=== PATIENT | male | born 1950 | race Caucasian/White ===

== ENCOUNTER 2016-12-30 09:37 | Inpatient (IN) | payer OTHER ==
[~2016-12-30] VITALS: Ht 185.4 cm; Wt 82.2 kg
[2016-12-30] MEDS ORDERED: SODIUM CHLORIDE 0.9% 1000ML 1,000 ML IV SCH (10:12)
[2016-12-30 10:29] LABS: BASO % 0.6 %; BASO ABS # 0.03 K/uL (0-0.2); COMPLETE YES; EOS % 2.1 %; HEMATOCRIT 44.3 % (42-52); IG% 0.2 %; LYMPH % 28.4 %; LYMPH ABS # 1.52 K/uL (1.2-3.4); MEAN CELL VOLUME 96.7 fL (80-100); MEAN CORPUSCULAR HEMOGLOBIN 33.8 pg (25-34); MEAN PLATELET VOLUME 9.4 fL (7.4-10.4); MONO % 10.3 %; NEUT % 58.4 %; PLATELET COUNT 237 K/uL (130-400); PROTHROMBIN TIME (PATIENT) 10.3 SECONDS (9.0-12.0); RED BLOOD COUNT 4.58 M/uL (4.7-6.1); WHITE BLOOD COUNT 5.35 K/uL (4.8-10.8)
[2016-12-30 10:35] LABS: BLOOD UREA NITROGEN 19 mg/dl (7-18); CALCIUM 9.4 mg/dl (8.5-10.1); CARBON DIOXIDE 29 mmol/L (21-32); CHLORIDE 107 mmol/L (98-107); GLUCOSE 113 mg/dl (70-99); POTASSIUM 3.8 mmol/L (3.5-5.1); SODIUM 140 mmol/L (136-145)
--- NOTE | 2016-12-30 10:37 | EMERGENCY ROOM VISIT NOTE ---
History Report prepared by Serina: Pam Musa Under the Supervision of: Dr. Sandip Lemos M.D. First contact with patient: 09:56 Chief Complaint: STROKE SYMPTOMS Stated Complaint: RIGHT SIDED NUMBNESS, DIZZY Nursing Triage Summary: Vertigo symptoms 3 days ago, new onset. Last night developed numbness in right side and weakness in right leg. History of Present Illness The patient is a 66 year old male who presents to the Emergency Room with complaints of stroke-like symptoms for the past 3 days. The patient states that 3 days ago he woke up with vertigo. He has never had vertigo before. He was dizzy and nauseated. He felt like the room was spinning. Any time that he tried to eat or drink he would become more nauseated and have vomiting. states that he slept in bed almost the entire day and would not eat or drink. The patient states that the next day he felt a little better but was still dizzy and nauseated. states that he slept most of that day as well. Yesterday afternoon most of his vertigo symptoms had resolved. He was able to go outside and cut the grass. He also ate pizza for dinner yesterday evening. The patient states that in the middle of the night last night he woke up and felt like he has slept on his right arm. His right arm was numb and tingling. He tried to scratch his eye but was unable to scratch it in the right place. He got up to go to the bathroom and noticed numbness in his right foot and he had difficulty walking. He also reports numbness and tingling to the right side of his face. He went back to sleep. The patient states that this morning he had a difficult time brushing his teeth. He also dropped the soap, which is very unusual for him. The patient states that he is still feeling "wobbly," but he denies feeling like the room is spinning. states that he has been "stumbling around" for the past few days. She had to help him walk into the hospital today. She reports that his gait appears abnormal. The patient notes that the day before his symptoms began he was in the [place] and found an old tarp behind a shed. He got numerous bug bites that day but denies any bull's eye rashes. Source of History: patient, spouse/significant other Onset: 3 days ago Position: other (global) Quality: other (stroke-like) Timing: worsening Associated Symptoms: + nausea, + vomiting, + fatigue, + weakness, + numbness (right sided), No rash Note: Pt had dizziness and vertigo Review of Systems See HPI for pertinent positives and negatives. A total of ten systems were reviewed and were otherwise negative. Past Medical & Surgical Medical Problems: (1) CVA (cerebral vascular accident) (2) Hypertension Surgical Problems: (1) H/O colonoscopy with polypectomy Family History Diabetes mellitus FH: cancer FHx: seizures Hypertension Kidney disease Kidney stones Seizures Social History Smoking Status: Former Smoker Smokeless Tobacco Use: No Alcohol Use: occasionally Marital Status: Housing Status: lives with significant other Occupation Status: employed Current/Historical Medications No Active Prescriptions or Reported Meds Allergies Coded Allergies: No Known Allergies (Unverified , 12/30/16) Physical Exam Vital Signs Date Time Temp Pulse Resp B/P (MAP) Pulse Ox O2 Delivery O2 Flow Rate FiO2 12/30/16 13:03 61 14 184/105 99 Room Air 12/30/16 11:35 98 Room Air 12/30/16 10:57 98 Room Air 12/30/16 10:22 63 16 176/96 95 12/30/16 09:57 64 12/30/16 09:39 36.6 72 18 221/106 99 Room Air Physical Exam GENERAL: Awake, alert, well-appearing, in no distress HENT: Normocephalic, atraumatic. Oropharynx unremarkable. Dry mucous membranes. EYES: Normal conjunctiva. Sclera non-icteric. NECK: Supple. No nuchal rigidity. FROM. No JVD. RESPIRATORY: Clear to auscultation. CARDIAC: Regular rate, normal rhythm. Extremities warm and well perfused. Pulses equal. ABDOMEN: Soft, non-distended. No tenderness to palpation. No rebound or guarding. No masses. RECTAL: Deferred. MUSCULOSKELETAL: Chest examination reveals no tenderness. The back is symmetrical on inspection without obvious abnormality. There is no CVA tenderness to palpation. No joint edema. LOWER EXTREMITIES: Calves are equal size bilaterally and non-tender. No edema. No discoloration. NEURO: Normal sensorium. Impaired cerebellar function with finger to nose on the right side, otherwise strength in all extremities normal. Sensation is objectively normal but patient reports some subjective numbness. With ambulation patient sways to the right. Negative Romberg although patient reports unsteadiness. SKIN: No rash or jaundice noted. Medical Decision & Procedures ER Provider Diagnostic Interpretation: Radiology results as stated below per my review and radiologist interpretation: CT SCAN OF THE BRAIN WITHOUT IV CONTRAST CLINICAL HISTORY: Stroke. Right-sided numbness. COMPARISON STUDY: No priors. TECHNIQUE: Unenhanced axial CT scan of the brain is performed from the vertex to the skull base. CT DOSE: 638.56 mGycm FINDINGS: Brain parenchyma: There is right cerebellar encephalomalacia consistent with a remote infarct. There are age-related involutional changes noting moderate subcortical and periventricular microangiopathic change. There is no hemorrhage, mass effect, or evidence of acute territorial ischemia by CT criteria. Arriaga-white matter is preserved. No extra-axial fluid collection is seen. Ventricles, sulci, cisterns: Prominent secondary to involutional change. Intracranial vasculature: There is atherosclerotic calcification of the cavernous carotid arteries. There is a 9 mm ovoid hyperdense structure identified along the right sylvian fissure. This is located along the course of the middle cerebral artery, as seen on axial image #7. Calvarium: Unremarkable. Sinuses and mastoids: The visualized paranasal sinuses are clear. The mastoid air cells are well pneumatized. Orbits: The bony orbits are grossly intact. IMPRESSION: 1. There is no hemorrhage, mass effect, or evidence of acute territorial ischemia by CT criteria. 2. Right cerebellar encephalomalacia is typical in appearance for a remote infarct. Correlation with the patient's medical history will be required. 3. There is an indeterminant ovoid 9 mm hyperdense structure along the course of the right middle cerebral artery. This is concerning for aneurysm. Follow-up with a CT angiogram of the brain is recommended for further assessment. Electronically signed by: Everton Waite M.D. 12/30/2016 10:47 AM Dictated Date/Time: 12/30/2016 10:35 AM NECK ANGIO WITH CONTRAST HISTORY: Mental status change stroke TECHNIQUE: Multiaxial CT images of the neck were performed following the intravenous administration of contrast to evaluate the major cervical vessels. Maximum intensity projection images were also obtained. All measurements were calculated based on NASCET criteria. A dose lowering technique was utilized adhering to the principles of ALARA. COMPARISON STUDY: None. FINDINGS: The aortic arch and proximal great vessels are widely patent. There is no significant stenosis, occlusion, or dissection identified within the bilateral common carotid, internal carotid, or vertebral arteries. Mild plaque formation bilaterally IMPRESSION: No significant stenosis, occlusion, or dissection identified within the carotid or vertebral arteries. Mild plaque formation The above report was generated using voice recognition software. It may contain grammatical, syntax or spelling errors. Electronically signed by: Farooq Mckenzie M.D. 12/30/2016 12:10 PM Dictated Date/Time: 12/30/2016 12:[address] ANGIOGRAM OF THE BRAIN CLINICAL HISTORY: Strokelike symptoms. Right-sided weakness. COMPARISON STUDY: Unenhanced CT of the brain performed the same day 12/30/2016. TECHNIQUE: Following the IV administration of 94 cc of Optiray 320, CT angiogram of the brain was performed from the skull base to the vertex. Images are reviewed in the axial, sagittal, and coronal planes. 3-D MIPS images are created and assessed. IV contrast was administered without complication. A dose lowering technique was utilized adhering to the principles of ALARA. FINDINGS: Brain parenchyma: There is moderate patchy subcortical and periventricular microangiopathic disease. Again seen is low attenuation throughout the right cerebellar hemisphere with possible mild edema. There is no evidence of supratentorial ischemia by CT criteria. There is no hemorrhage or mass effect. There is no evidence of enhancing mass lesion on the angiogram phase images. No extra-axial fluid collection is seen. Arriaga-white matter differentiation is preserved. Ventricles, sulci, and cisterns: Normal in configuration. CT angiogram of the brain: The internal carotid arteries are widely patent, as are the anterior and middle cerebral arteries. The vertebrobasilar system and posterior cerebral arteries are widely patent. The left vertebral artery is dominant. There is no aneurysm, high-grade stenosis, or focal vessel cutoff identified throughout the intracranial circulation. Dural sinuses: Clear as visualized. Orbits: The bony orbits are intact. The orbital contents are normal as visualized. Sinuses and mastoids: The visualized paranasal sinuses are clear. The mastoid air cells are well pneumatized. Calvarium: Unremarkable. IMPRESSION: 1. Unremarkable CT angiogram of the brain. The aneurysm questioned on the unenhanced examination corresponds to tortuosity of the right middle cerebral artery. 2. There is low-attenuation seen throughout the right cerebellar hemisphere with the suggestion of mild edema. This is likely related to subacute to chronic ischemia. A mass lesion is considered much less likely. Correlation with a contrast-enhanced MRI is recommended for further assessment. 3. No acute supratentorial abnormality is identified. Electronically signed by: Everton Waite M.D. 12/30/2016 12:14 PM Dictated Date/Time: 12/30/2016 12:02 PM BRAIN COMBO CLINICAL HISTORY: stroke - stroke radha tracee and r/o mass COMPARISON STUDY: No previous studies for comparison. TECHNIQUE: Utilizing a 1.5 Gabriella magnet and dedicated coil, multiplanar, multiecho imaging of the brain was performed pre and postcontrast administration. IV administration of 8.2 mL of Gadavist contrast was uneventful. FINDINGS: Geographic subacute infarct right inferior cerebellum. This measures approximately 5 x 3 cm in maximum geographic area. Considerable chronic small vessel change throughout the cerebral hemispheres. Moderate generalized atrophy. Ventricular system is midline. Postcontrast images are considered negative for an enhancing lesion. IMPRESSION: 1. Large subacute geographic infarct right inferior cerebellum. 2. Considerable chronic small vessel change throughout both cerebral hemispheres. 3. No abnormal postcontrast enhancement. The above report was generated using voice recognition software. It may contain grammatical, syntax or spelling errors. Electronically signed by: Farooq Mckenzie M.D. 12/30/2016 1:09 PM Dictated Date/Time: 12/30/2016 12:56 PM Laboratory Results 12/30/16 09:50 Red Blood Count 4.58, Mean Corpuscular Volume 96.7, Mean Corpuscular Hemoglobin 33.8, Mean Corpuscular Hemoglobin Concent 35.0, Mean Platelet Volume 9.4, Neutrophils (%) (Auto) 58.4, Lymphocytes (%) (Auto) 28.4, Monocytes (%) (Auto) 10.3, Eosinophils (%) (Auto) 2.1, Basophils (%) (Auto) 0.6, Neutrophils # (Auto ) 3.13, Lymphocytes # (Auto) 1.52, Monocytes # (Auto) 0.55, Eosinophils # (Auto ) 0.11, Basophils # (Auto) 0.03 12/30/16 09:50 Test 12/30/16 09:50 12/30/16 10:35 White Blood Count 5.35 K/uL (4.8-10.8) Red Blood Count 4.58 M/uL (4.7-6.1) Hemoglobin 15.5 g/dL (14.0-18.0) Hematocrit 44.3 % (42-52) Mean Corpuscular Volume 96.7 fL (80-100) Mean Corpuscular Hemoglobin 33.8 pg (25-34) Mean Corpuscular Hemoglobin Concent 35.0 g/dl (32-36) Platelet Count 237 K/uL (130-400) Mean Platelet Volume 9.4 fL (7.4-10.4) Neutrophils (%) (Auto) 58.4 % Lymphocytes (%) (Auto) 28.4 % Monocytes (%) (Auto) 10.3 % Eosinophils (%) (Auto) 2.1 % Basophils (%) (Auto) 0.6 % Neutrophils # (Auto) 3.13 K/uL (1.4-6.5) Lymphocytes # (Auto) 1.52 K/uL (1.2-3.4) Monocytes # (Auto) 0.55 K/uL (0.11-0.59) Eosinophils # (Auto) 0.11 K/uL (0-0.5) Basophils # (Auto) 0.03 K/uL (0-0.2) RDW Standard Deviation 43.7 fL (36.4-46.3) RDW Coefficient of Variation 12.6 % (11.5-14.5) Immature Granulocyte % (Auto) 0.2 % Immature Granulocyte # (Auto) 0.01 K/uL (0.00-0.02) Prothrombin Time 10.3 SECONDS (9.0-12.0) Prothromb Time International Ratio 1.0 (0.9-1.1) Activated Partial Thromboplast Time 26.4 SECONDS (21.0-31.0) Partial Thromboplastin Ratio 1.0 Anion Gap 4.0 mmol/L (3-11) Est Creatinine Clear Calc Drug Dose 75.6 ml/min Estimated GFR () 81.2 Estimated GFR (Non- 70.1 BUN/Creatinine Ratio 17.0 (10-20) Calcium Level 9.4 mg/dl (8.5-10.1) Total Creatine Kinase 124 U/L (39-308) Creatine Kinase MB 0.9 ng/ml (0.5-3.6) Creatine Kinase MB Ratio 0.7 (0-3.0) Troponin I < 0.015 ng/ml (0-0.045) Lyme Disease IgG Antibody NEG (NEG) Lyme Disease IgM Antibody NEG (NEG) Urine Color DK YELLOW Urine Appearance CLOUDY (CLEAR) Urine pH 5.0 (4.5-7.5) Urine Specific [place] 1.025 (1.000-1.030) Urine Protein NEG (NEG) Urine Glucose (UA) NEG (NEG) Urine Ketones TRACE (NEG) Urine Occult Blood NEG (NEG) Urine Nitrite NEG (NEG) Urine Bilirubin NEG (NEG) Urine Urobilinogen NEG (NEG) Urine Leukocyte Esterase NEG (NEG) Urine WBC (Auto) 1-5 /hpf (0-5) Urine RBC (Auto) 0-4 /hpf (0-4) Urine Hyaline Casts (Auto) 1-5 /lpf (0-5) Urine Epithelial Cells (Auto) 5-10 /lpf (0-5) Urine Bacteria (Auto) NEG (NEG) Laboratory results reviewed by me. Medications Administered Medications (Trade) Dose Ordered Sig/Sonal Route Start Time Stop Time Status Last Admin Dose Admin Sodium Chloride 1,000 ml @ 50 mls/hr Q20H IV 12/30/16 10:12 12/30/16 16:38 DC 12/30/16 10:43 50 MLS/HR ECG Indication: other (stroke symptoms) Rate (beats per minute): 55 Rhythm: sinus bradycardia Findings: no acute ischemic change, other (normal axis) ED Course 0956: The patient was evaluated in room A10. A complete history and physical exam was performed. 1012: NSS 1000 ml @ 50 mls/hr IV 1102: I reassessed the patient at this time. He is feeling better and resting comfortably. I discussed the results and treatment plan with the patient and his . I answered all pertaining questions that they had. They expressed understanding and verbalized agreement. 1114: I spoke with MARK Perla. We discussed the patient's case. She recommended ordering CTA. The patient will be evaluated by the [facility] for further management. 1124: I spoke with Ruba Wisdom again. She has discussed the case with neurology and they are concerned with the size of the area and requesting and MRI as well. 1337: I spoke with Dr. Mckenzie of radiology regarding the patient's MRI results. He states that there was no edema on MRI despite the questionable edema on CTA. He thinks this has been 2-3 days in chronicity. 1341: At this time I spoke with Ruba Wisdom and updated her on the patient's results. 1345: I updated the patient and his and answered all of their questions. Medical Decision I reviewed the patient's past medical history, medications, and the nursing notes as described above. Differential diagnoses includes stroke, TIA, possible infection, Lyme, Laurent's palsy, complex migraine. Patient is a 66-year-old gentleman, previously healthy , who presents to the emergency department with 3 days of vertigo and impaired gait leaning to the right that has continually improved but also reporting now mild numbness in right arm and leg per history of present illness. On arrival the patient is afebrile hypertensive to 180s. On exam the patient has gross impairment of finger-nose with passed pointing. When he ambulated well into the right. Otherwise sensation and strength in all extremities intact. Considering 3 days of symptoms patient is not a TPA candidate and thus no stroke activation was initiated. However CT and stroke eval was expedited and CT noncontrast showed a large right cerebellar remote infarct. Question of right MCA aneurysm further clarified on CTA found to be artifact of tortuous MCA. Question of edema further clarified on MRI which showed no edema and was further confirmed when discussed with radiologist. Labs unremarkable. Neurology aware of patient after I discussed the case with the hospitalist. Neuro concerned for possible edema which would which would merit transfer to higher level of care. However after reassuring findings on MRI agreeable for admission to medicine service. Recommends holding aspirin at this time as patient is still at risk for hemorrhagic conversion. Discussed with hospitalist, Alyx, who accepted patient for admission. Medication Reconcilliation Current Medication List: was personally reviewed by me Blood Pressure Screening Patient's blood pressure: Elevated blood pressure Blood pressure disposition: Elevated BP felt to be situational Consults Time Called: 1112 Consulting Physician: MARK Perla Returned Call: 1114 I spoke with MARK Perla. We discussed the patient's case. She recommended ordering CTA. The patient will be evaluated by the [facility] for further management. Additional Consults: Time Called: 1124 Consulted Physician: MARK Perla Returned Call: [phone] Additional Comments: I spoke with Ruba Wisdom again. She has discussed the case with neurology and they are concerned with the size of the area and requesting and MRI as well. Time Called: [phone] Consulted Physician: Dr. Mckenzie Returned Call: [phone] Additional Comments: I spoke with Dr. Mckenzie of radiology regarding the patient's MRI results. He states that there was no edema on MRI despite the questionable edema on CTA. He thinks this has been 2-3 days in chronicity. Impression Primary Impression: Cerebellar stroke Scribe Attestation The scribe's documentation has been prepared under my direction and personally reviewed by me in its entirety. I confirm that the note above accurately reflects all work, treatment, procedures, and medical decision making performed by me. Departure Information Dispostion Being Evaluated By Hospitalist Prescriptions No Active Prescriptions or Reported Meds Referrals David Ridley III, M.D. (PCP) Patient Instructions My [facility] Stroke History Time Last Known Well Greater than 72 hours Stroke t-PA Criteria Reviewed Does NOT meet criteria for t-PA Reason t-PA Not Given Treatment not indicated Strict Exclusion Criteria CT findings of ICH or SAH
[2016-12-30 10:40] LABS: CKMB/CK RATIO 0.7 (0-3.0)
--- NOTE | 2016-12-30 10:48 | DIAGNOSTIC IMAGING REPORT ---
CT SCAN OF THE BRAIN WITHOUT IV CONTRAST CLINICAL HISTORY: Stroke. Right-sided numbness. COMPARISON STUDY: No priors. TECHNIQUE: Unenhanced axial CT scan of the brain is performed from the vertex to the skull base. CT DOSE: 638.56 mGycm FINDINGS: Brain parenchyma: There is right cerebellar encephalomalacia consistent with a remote infarct. There are age-related involutional changes noting moderate subcortical and periventricular microangiopathic change. There is no hemorrhage, mass effect, or evidence of acute territorial ischemia by CT criteria. Arriaga-white matter is preserved. No extra-axial fluid collection is seen. Ventricles, sulci, cisterns: Prominent secondary to involutional change. Intracranial vasculature: There is atherosclerotic calcification of the cavernous carotid arteries. There is a 9 mm ovoid hyperdense structure identified along the right sylvian fissure. This is located along the course of the middle cerebral artery, as seen on axial image #7. Calvarium: Unremarkable. Sinuses and mastoids: The visualized paranasal sinuses are clear. The mastoid air cells are well pneumatized. Orbits: The bony orbits are grossly intact. IMPRESSION: 1. There is no hemorrhage, mass effect, or evidence of acute territorial ischemia by CT criteria. 2. Right cerebellar encephalomalacia is typical in appearance for a remote infarct. Correlation with the patient's medical history will be required. 3. There is an indeterminant ovoid 9 mm hyperdense structure along the course of the right middle cerebral artery. This is concerning for aneurysm. Follow-up with a CT angiogram of the brain is recommended for further assessment. Electronically signed by: Everton Waite M.D. 12/30/2016 10:47 AM Dictated Date/Time: 12/30/2016 10:35 AM
[2016-12-30 10:56] LABS: LYME DISEASE AB IGG NEG (NEG); LYME DISEASE AB IGM NEG (NEG)
[2016-12-30 11:09] LABS: URINE APPEARANCE CLOUDY (CLEAR); URINE BILIRUBIN NEG (NEG); URINE COLOR DK YELLOW; URINE NITRITE NEG (NEG); URINE SPECIFIC GRAVITY 1.025 (1.000-1.030); UROBILINOGEN NEG (NEG); ZZUR CULT IF INDIC CLEAN CATCH NO
[2016-12-30 11:14] LABS: MANUAL MICROSCOPIC REQUIRED? NO; REVIEW REQ? NO
[2016-12-30] MEDS ORDERED: OPTIRAY 320 IV PRN (11:30)
[2016-12-30 11:35] VITALS: O2SAT 98; Ht 185.4 cm; Wt 82.2 kg
--- NOTE | 2016-12-30 12:11 | DIAGNOSTIC IMAGING REPORT ---
NECK ANGIO WITH CONTRAST HISTORY: Mental status change stroke TECHNIQUE: Multiaxial CT images of the neck were performed following the intravenous administration of contrast to evaluate the major cervical vessels. Maximum intensity projection images were also obtained. All measurements were calculated based on NASCET criteria. A dose lowering technique was utilized adhering to the principles of ALARA. COMPARISON STUDY: None. FINDINGS: The aortic arch and proximal great vessels are widely patent. There is no significant stenosis, occlusion, or dissection identified within the bilateral common carotid, internal carotid, or vertebral arteries. Mild plaque formation bilaterally IMPRESSION: No significant stenosis, occlusion, or dissection identified within the carotid or vertebral arteries. Mild plaque formation The above report was generated using voice recognition software. It may contain grammatical, syntax or spelling errors. Electronically signed by: Farooq Mckenzie M.D. 12/30/2016 12:10 PM Dictated Date/Time: 12/30/2016 12:07 PM
--- NOTE | 2016-12-30 12:15 | DIAGNOSTIC IMAGING REPORT ---
CT ANGIOGRAM OF THE BRAIN CLINICAL HISTORY: Strokelike symptoms. Right-sided weakness. COMPARISON STUDY: Unenhanced CT of the brain performed the same day 12/30/2016. TECHNIQUE: Following the IV administration of 94 cc of Optiray 320, CT angiogram of the brain was performed from the skull base to the vertex. Images are reviewed in the axial, sagittal, and coronal planes. 3-D MIPS images are created and assessed. IV contrast was administered without complication. A dose lowering technique was utilized adhering to the principles of ALARA. FINDINGS: Brain parenchyma: There is moderate patchy subcortical and periventricular microangiopathic disease. Again seen is low attenuation throughout the right cerebellar hemisphere with possible mild edema. There is no evidence of supratentorial ischemia by CT criteria. There is no hemorrhage or mass effect. There is no evidence of enhancing mass lesion on the angiogram phase images. No extra-axial fluid collection is seen. Arriaga-white matter differentiation is preserved. Ventricles, sulci, and cisterns: Normal in configuration. CT angiogram of the brain: The internal carotid arteries are widely patent, as are the anterior and middle cerebral arteries. The vertebrobasilar system and posterior cerebral arteries are widely patent. The left vertebral artery is dominant. There is no aneurysm, high-grade stenosis, or focal vessel cutoff identified throughout the intracranial circulation. Dural sinuses: Clear as visualized. Orbits: The bony orbits are intact. The orbital contents are normal as visualized. Sinuses and mastoids: The visualized paranasal sinuses are clear. The mastoid air cells are well pneumatized. Calvarium: Unremarkable. IMPRESSION: 1. Unremarkable CT angiogram of the brain. The aneurysm questioned on the unenhanced examination corresponds to tortuosity of the right middle cerebral artery. 2. There is low-attenuation seen throughout the right cerebellar hemisphere with the suggestion of mild edema. This is likely related to subacute to chronic ischemia. A mass lesion is considered much less likely. Correlation with a contrast-enhanced MRI is recommended for further assessment. 3. No acute supratentorial abnormality is identified. Electronically signed by: Everton Waite M.D. 12/30/2016 12:14 PM Dictated Date/Time: 12/30/2016 12:02 PM
--- NOTE | 2016-12-30 13:10 | DIAGNOSTIC IMAGING REPORT ---
BRAIN COMBO CLINICAL HISTORY: stroke - stroke radha tracee and r/o mass COMPARISON STUDY: No previous studies for comparison. TECHNIQUE: Utilizing a 1.5 Gabriella magnet and dedicated coil, multiplanar, multiecho imaging of the brain was performed pre and postcontrast administration. IV administration of 8.2 mL of Gadavist contrast was uneventful. FINDINGS: Geographic subacute infarct right inferior cerebellum. This measures approximately 5 x 3 cm in maximum geographic area. Considerable chronic small vessel change throughout the cerebral hemispheres. Moderate generalized atrophy. Ventricular system is midline. Postcontrast images are considered negative for an enhancing lesion. IMPRESSION: 1. Large subacute geographic infarct right inferior cerebellum. 2. Considerable chronic small vessel change throughout both cerebral hemispheres. 3. No abnormal postcontrast enhancement. The above report was generated using voice recognition software. It may contain grammatical, syntax or spelling errors. Electronically signed by: Farooq Mckenzie M.D. 12/30/2016 1:09 PM Dictated Date/Time: 12/30/2016 12:56 PM
[2016-12-30] MEDS ORDERED: PNEUMOCOCCAL ADMINISTRATION CHARGE ONE (13:45)
[2016-12-30] MEDS ORDERED: PNEUMOCOCCAL POLYSACCHARIDES 25 MCG/0.5 ML VIAL/SYR IM. ONE (13:45)
[2016-12-30] MEDS ORDERED: PHARMACIST DISCHARGE MED REC CONSULT PRN (14:45)
[2016-12-30] MEDS ORDERED: ACETAMINOPHEN 325 MG TAB PO PRN (15:00)
[2016-12-30] MEDS ORDERED: ONDANSETRON INJ 2 MG/ML 2 ML VIAL IV PRN (15:00)
--- NOTE | 2016-12-30 15:27 | Progress Note ---
Progress Note Date of Service Dec 30, 2016. Progress Note Patient was seen and evaluated with ALVA Bright. Patient comes in with c/o dizziness, off balance, nausea, followed by numbness and weakness in right face, upper/lower extremities. Had vomiting 2 days ago. No headaches. EXAM: Gen- AAOX3, no distress HEENT- PERRLA Neck- No JVD Lungs- AEBE, no wheezing, rales Heart- S1, S2 normal, no murmurs Neuro- AAOX3, Cranial nerves intact, Power 5/5 all extremities, Coordination- Finger to nose test- right side abnormal, Ceballos-Heel test- normal, Sensory all ext - normal Ext- no edema Labs reviewed Imaging reviewed MRI BRAIN IMPRESSION: 1. Large subacute geographic infarct right inferior cerebellum. 2. Considerable chronic small vessel change throughout both cerebral hemispheres. 3. No abnormal postcontrast enhancement. CTA HEAD IMPRESSION: 1. Unremarkable CT angiogram of the brain. The aneurysm questioned on the unenhanced examination corresponds to tortuosity of the right middle cerebral artery. 2. There is low-attenuation seen throughout the right cerebellar hemisphere with the suggestion of mild edema. This is likely related to subacute to chronic ischemia. A mass lesion is considered much less likely. Correlation with a contrast-enhanced MRI is recommended for further assessment. 3. No acute supratentorial abnormality is identified. CTA NECK IMPRESSION: No significant stenosis, occlusion, or dissection identified within the carotid or vertebral arteries. Mild plaque formation ASSESSMENT AND PLAN: ACUTE STROKE- LARGE RIGHT INFERIOR CEREBELLUM: Presented with symptoms of dizziness, off balance, right sided numbness, weakness -CT head/MRI brain- Large subacute geographic infarct right inferior cerebellum -Continues to have some dizziness, coordination deficits -Not a candidate for TPA as outside the window -Risk factors- Elevated BP in past 2 months which was being evaluated but not treated -No ASA given the large infarct and risk of hemorrhagic conversion per Neurology -Statin - Atorvastatin 80 mg -Work up- CTA head/neck- as above, no aneurysm (was noted on CT scan head), Lipid panel in AM, HBA1C for risk stratification -Neurology consulted - ER physician discussed case with Dr Marin. HYPERTENSION Diagnosed 2 months ago, but not treated as patient was hesitant of starting PO medications and wanted to achieve control with life style modifications -BP in 180s -Permissive HTN -Hydralazine IV PRN for SBP < 180 OR DBP > 110 -Monitor closely DVT PROPHYLAXIS SCDS/TEDS No anticoagulation due to risk of hemorrhagic conversion DISPOSITION -Admit to telemetry
--- NOTE | 2016-12-30 15:28 | History and Physical ---
History & Physical Date & Time of Service: Dec 30, 2016 at 14:53 Chief Complaint: Right Sided Numbness, Dizzy Primary Care Physician: David Ridley III, M.D. History of Present Illness Source: patient, spouse, clinic records This is a 66 y/o male with recently noted HTN who presents to the ED with stroke like symptoms. Patient states 3 days ago he developed vertigo "like I was spinning" and vomiting, then slept for the rest of the day. The next day he felt better although was "wobbly", then yesterday mowed the lawn and ate normally. He went to bed at 10 pm then awoke at 3 am noting his right hand coordination was off, right facial numbness and right foot numbness. Also had a mild DAVIS overnight. He was brought to the ER by his and had difficulty ambulating into the ER. Currently still having right facial numbness and R hand coordination difficulty. Denies vision change, speech or swallowing difficulty, facial droop, focal weakness, syncope, palpitations, chest pain, SOB, BASURTO, bowel or bladder changes, fever, URI symptoms, tinnitus. Pt reports rash on arms after "either bug bites or poison tiffany" while outside last week which is improving. Patient states his BP was elevated at the dentist recently. Pt reports seeing Dr. Ridley last month, BP was elevated in the office, pt preferred not to go on medication at that time. Home BP readings are 130s-140s systolic at home however increase to 150's if he is upset. Patient denies any history of TIA, CVA, HL, DM. Past Medical/Surgical History Medical Problems: (1) Hypertension Status: Chronic Surgical Problems: (1) H/O colonoscopy with polypectomy Status: Chronic Family History Diabetes mellitus FH: cancer FHx: seizures Hypertension Kidney disease Kidney stones Seizures TIAs MOTHER (in 70's) SISTER (late 50's) Social History Smoking Status: Former Smoker (quit 25y ago, smoked 1/2 ppd x 18 y) Smokeless Tobacco Use: No Alcohol Use: 3-4 glasses of wine per day Drug Use: none Marital Status: Housing status: lives with significant other Occupational Status: employed Multi-Drug Resistant Organisms History of MDRO: No Allergies Coded Allergies: No Known Allergies (Unverified , 12/30/16) Home Medications No Active Prescriptions or Reported Meds Review of Systems Ten systems reviewed and negative except as noted in HPI. Physical Exam Vital Signs Date Time Temp Pulse Resp B/P (MAP) Pulse Ox O2 Delivery O2 Flow Rate FiO2 12/30/16 13:03 61 14 184/105 99 Room Air 12/30/16 11:35 98 Room Air 12/30/16 10:57 98 Room Air 12/30/16 10:22 63 16 176/96 95 12/30/16 09:57 64 12/30/16 09:39 36.6 72 18 221/106 99 Room Air General Appearance: WD/WN, no apparent distress, + pertinent finding ( at bedside) Head: normocephalic, atraumatic Eyes: normal inspection, PERRL, EOMI, sclerae normal ENT: hearing grossly normal, pharynx normal Neck: supple, no carotid bruits, trachea midline Respiratory/Chest: lungs clear, normal breath sounds, no respiratory distress, no accessory muscle use Cardiovascular: regular rate, rhythm, no murmur Abdomen/GI: normal bowel sounds, non tender, soft Extremities/Musculoskelatal: no calf tenderness, no pedal edema Neurologic/Psych: fly raiser lockstitch II-XII nml as tested, no motor/sensory deficits, alert, normal mood/affect, oriented x 3, + pertinent finding (finger to nose testing abnormal on the right side. gait not assessed.) Skin: normal color, warm/dry Diagnostics Laboratory Results Results Past 24 Hours Test 12/30/16 09:50 12/30/16 10:35 12/30/16 14:44 Range/Units White Blood Count 5.35 4.8-10.8 K/uL Red Blood Count 4.58 4.7-6.1 M/uL Hemoglobin 15.5 14.0-18.0 g/dL Hematocrit 44.3 42-52 % Mean Corpuscular Volume 96.7 80-100 fL Mean Corpuscular Hemoglobin 33.8 25-34 pg Mean Corpuscular Hemoglobin Concent 35.0 32-36 g/dl Platelet Count 237 130-400 K/uL Mean Platelet Volume 9.4 7.4-10.4 fL Neutrophils (%) (Auto) 58.4 % Lymphocytes (%) (Auto) 28.4 % Monocytes (%) (Auto) 10.3 % Eosinophils (%) (Auto) 2.1 % Basophils (%) (Auto) 0.6 % Neutrophils # (Auto) 3.13 1.4-6.5 K/uL Lymphocytes # (Auto) 1.52 1.2-3.4 K/uL Monocytes # (Auto) 0.55 0.11-0.59 K/uL Eosinophils # (Auto) 0.11 0-0.5 K/uL Basophils # (Auto) 0.03 0-0.2 K/uL RDW Standard Deviation 43.7 36.4-46.3 fL RDW Coefficient of Variation 12.6 11.5-14.5 % Immature Granulocyte % (Auto) 0.2 % Immature Granulocyte # (Auto) 0.01 0.00-0.02 K/uL Prothrombin Time 10.3 9.0-12.0 SECONDS Prothromb Time International Ratio 1.0 0.9-1.1 Activated Partial Thromboplast Time 26.4 21.0-31.0 SECONDS Partial Thromboplastin Ratio 1.0 Sodium Level 140 136-145 mmol/L Potassium Level 3.8 3.5-5.1 mmol/L Chloride Level 107 98-107 mmol/L Carbon Dioxide Level 29 21-32 mmol/L Anion Gap 4.0 3-11 mmol/L Blood Urea Nitrogen 19 7-18 mg/dl Creatinine 1.10 0.60-1.40 mg/dl Est Creatinine Clear Calc Drug Dose 75.6 ml/min Estimated GFR () 81.2 Estimated GFR (Non- 70.1 BUN/Creatinine Ratio 17.0 10-20 Random Glucose 113 70-99 mg/dl Calcium Level 9.4 8.5-10.1 mg/dl Total Creatine Kinase 124 39-308 U/L Creatine Kinase MB 0.9 0.5-3.6 ng/ml Creatine Kinase MB Ratio 0.7 0-3.0 Troponin I < 0.015 0-0.045 ng/ml Lyme Disease IgG Antibody NEG NEG Lyme Disease IgM Antibody NEG NEG Urine Color DK YELLOW Urine Appearance CLOUDY CLEAR Urine pH 5.0 4.5-7.5 Urine Specific [place] 1.025 1.000-1.030 Urine Protein NEG NEG Urine Glucose (UA) NEG NEG Urine Ketones TRACE NEG Urine Occult Blood NEG NEG Urine Nitrite NEG NEG Urine Bilirubin NEG NEG Urine Urobilinogen NEG NEG Urine Leukocyte Esterase NEG NEG Urine WBC (Auto) 1-5 0-5 /hpf Urine RBC (Auto) 0-4 0-4 /hpf Urine Hyaline Casts (Auto) 1-5 0-5 /lpf Urine Epithelial Cells (Auto) 5-10 0-5 /lpf Urine Bacteria (Auto) NEG NEG Diagnostic Radiology CT SCAN OF THE BRAIN WITHOUT IV CONTRAST IMPRESSION: 1. There is no hemorrhage, mass effect, or evidence of acute territorial ischemia by CT criteria. 2. Right cerebellar encephalomalacia is typical in appearance for a remote infarct. Correlation with the patient's medical history will be required. 3. There is an indeterminant ovoid 9 mm hyperdense structure along the course of the right middle cerebral artery. This is concerning for aneurysm. Follow-up with a CT angiogram of the brain is recommended for further assessment. NECK ANGIO WITH CONTRAST IMPRESSION: No significant stenosis, occlusion, or dissection identified within the carotid or vertebral arteries. Mild plaque formation CT ANGIOGRAM OF THE BRAIN IMPRESSION: 1. Unremarkable CT angiogram of the brain. The aneurysm questioned on the unenhanced examination corresponds to tortuosity of the right middle cerebral artery. 2. There is low-attenuation seen throughout the right cerebellar hemisphere with the suggestion of mild edema. This is likely related to subacute to chronic ischemia. A mass lesion is considered much less likely. Correlation with a contrast-enhanced MRI is recommended for further assessment. 3. No acute supratentorial abnormality is identified. BRAIN COMBO IMPRESSION: 1. Large subacute geographic infarct right inferior cerebellum. 2. Considerable chronic small vessel change throughout both cerebral hemispheres. 3. No abnormal postcontrast enhancement. EKG sinus bradycardia, 55 bpm, no ectopy, no ischemic findings Impression Assessment and Plan LARGE RIGHT CEREBELLAR INFARCT Presented with vertigo, right hand coordination difficulty, right facial and right leg numbness, and difficulty ambulating CT head- no hemorrhage, mass effect or evidence acute ischemia, + R cerebellar encephalomalacia typical for remote infarct- correlate with history; indeterminant ovoid 9 mm hyperdense structure along the course of R MCA concerning for aneurysm, f/u CTA brain recommended CTA neck- no signficiant stenosis, occlusion, or dissection within carotid or vertebral arteries, +mild plaque formation CTA brain- the aneurysm questioned on CT corresponds to tortuosity of the right MCA; There is low-attenuation seen throughout the right cerebellar hemisphere with the suggestion of mild edema, likely subacute to chronic ischemia, mass lesion much less likely, correlate with MRI MRI brain combo- large subacute geographic infarct right inferior cerebellum, considerable chronic small vessel change throughout both cerebral hemispheres, no abnormal postcontrast enhancement Risk factor- hypertension Check echo w/ bubble study, telemetry monitoring Check lipid panel, A1c Start atorvastatin 80 mg Aspirin contraindicated for now due to high risk for hemorrhagic conversion as per neurology Permissive hypertension Consult neurology- Dr. Marin is aware PT, OT, speech consults HYPERTENSION Recently noted as outpatient- patient preferred not to go on medication at that time BP 220 systolic on presentation to ER -> now 180s/100s Permissive HTN for CVA PRN hydralazine for SBP >180 or DBP >110 DVT PROPHYLAXIS SCD's due to risk of hemorrhagic conversion FULL CODE DISPOSITION Admission telemetry Follows with Dr. Ridley for primary care Patient seen in collaboration w/ Dr. Sole Barcenas. Please see her addendum. Advanced Directives Existing Living Will: Yes Existing Power of Distribution Engineering Technologist: Yes VTE Prophylaxis VTE Risk Assessment Done? Y/N: Yes Risk Level: Moderate
[2016-12-30] MEDS ORDERED: HydrALAZINE HCL 20 MG/ML VIAL IV. PRN (15:30)
[2016-12-30 16:00] VITALS: BP 200/91; PULSE 52; TEMP 37; O2SAT 98
[2016-12-30 20:00] VITALS: BP 154/82; PULSE 60; TEMP 36.9; O2SAT 98
--- NOTE | 2016-12-30 20:34 | CONSULTATION REPORT ---
DATE OF CONSULTATION: 12/30/2016 REFERRING PHYSICIAN: Dr. Sole Barcenas. HISTORY OF PRESENT ILLNESS: Mr. Serrato is 66 years old, is right handed, is a retired real estate agency principal from [place] and has a relatively benign medical history with only recently diagnosed hypertension, started on some medication by Dr. Ridley after observation for a while and has had a colonoscopy and a polypectomy. He awakened from sleep, 3 days ago with vertigo and fairly significant vomiting and slept the rest of the day thinking that he had a viral illness. He got up feeling somewhat better on the second day, was a little wobbly, probably was a little dystaxic to the right, but was able to get on a lawnmower, mowed his lawn, ate normally and went to bed. He awakened at 3 this morning with a sensation of numbness in his right hand, difficulty with coordination, which was probably the primary problem and had some tingling in the right side of his face. He denied any other issues, although his states that he was more wobbly today or perhaps more wobbly and had trouble walking, tending to go to the right and his arm was more clumsy. He was brought to the ER and evaluated. Initial assessment suggests the possibility of a cerebral aneurysm and subsequent CT angiography, etc. has excluded this and there was a question of a cerebellar infarct on the right on CT scan. I discussed the case with Zeina FLORES suggested that we get an MRI to further define the problem and indeed the MRI confirmed the presence of what appears to be a recently originating right cerebellar infarct with some extension into the dorsal right lateral medulla. He has had absolutely no headache, diplopia, abnormal ocular oscillations, visual loss, tinnitus, hearing loss, motor problems other than those described above and no sensory phenomenon other than actually the numbness involving the right side of his face and a sensation of clumsiness and stiffness in his right arm in addition to the leg clumsiness. SOCIAL HISTORY: Reveals him to be a former smoker, quitting 25 years ago. He does consume ethanol. He lives with his significant other, is partially retired from the [employer] business. FAMILY HISTORY: Positive for diabetes, cancer, seizures, hypertension and kidney stones and kidney disease. His mother and sister had TIAs in their 70s and 50s. MEDICATIONS: At home include apparently no active prescriptions. I thought he had been on some lisinopril. ALLERGIES: He has no drug allergies. REVIEW OF SYSTEMS: Reveals no systemic issues recently. No tick bites. No fever, sweats, chills, no weight loss, no weight gain, no problems referable to head, eyes, ears, nose and throat other than those related to history of present illness. No cardiovascular, pulmonary, gastrointestinal, genitourinary, or musculoskeletal problems and no prior neurologic issues. He specifically denies any history of palpitations or irregular heartbeat that he has been aware of. PHYSICAL EXAMINATION: VITAL SIGNS: The blood pressure is 184/105, rising even further to 221/106. Pulse is 61, respiration of 14. GENERAL: He is well developed, well-nourished, oriented. He has normal extraocular movements. He has normal visual acuity. NECK: I do not hear any carotid bruits. LUNGS: Clear. HEART: Has a regular rhythm. I do not hear any murmurs. ABDOMEN: Soft, nontender. EXTREMITIES: Free of edema. He has good peripheral pulses. NEUROLOGIC: Today, he is awake, alert, oriented, has clear speech. There may be a slight degree of reduced thermal sensation in the right side of the face. Otherwise, facial motility and strength is normal. Eye movements are normal. Visual cuevas are full. There is no Alejo's syndrome. Ocular fundi are poorly seen. Speech is clear. Tongue protrudes in the midline. Uvula elevates normally. There may be a very minor degree of clumsiness of the right hand, on [id number] and [id number] testing with some past pointing on the right. Otherwise, exam was free of tremors, tics, choreiform activity or other abnormal involuntary movements. The facility of rapid repetitive motions in the right leg is marginally decreased. He has a little cerebellar dysmetria on heel to flores testing on the right, but not the left. Reflexes are 1+ and symmetrical. Toes are downgoing. No Meagan's signs are seen. Muscle strength testing is normal. Sensation is intact with the exception of a minor reduction of temperature sensation in the right side of the face. IMPRESSION: This man has clearly had a cerebellar infarct, it came on acutely 3 days ago. Some of his new symptoms may reflect a slight Supriya-infarction edema and/or slight compression on the medulla, although imaging studies suggest there is an element of ischemia in the dorsal lateral medulla on the right which might be involving the descending pathways from the trigeminal nerve. Whatever the case, there does not appear to be large mass effect. There is no evidence for early hemorrhage, we do not have any evidence for significant vascular disease, although cta of the vertebral arteries does not show clear delineaton of the PICA distribution on either side, so a localized right pica occlusion could not be excluded. Whatever the case, he needs observation. We are going probably do more imaging studies tomorrow or the next day depending on how he does just to be sure there is no hemorrhagic transformation. I am going to hold off on any empiric anticoagulation at this point. His blood pressure is going to have to be reduced into an acceptable range with some elements of permissive hypertension. He probably will start up on antiplatelet agents in a day or 2 once I am convinced there is no hemorrhagic transformation in this area and there is no further edema. He is going to need an evaluation for cardiogenic source of emboli and I believe if we do not see any evidence for atrial fibrillation while here, he is going to need a Zio patch or Cardionet monitor as this would be one of the more common causes for this type of cryptogenic possibly embolic cerebellar infarction. Dr. Lisette Pinzon now will take a look at him tomorrow. SERGEY
[2016-12-30] MEDS ORDERED: ATORVASTATIN 40 MG TAB PO SCH ×2 (21:00)
[2016-12-30 23:40] VITALS: BP 164/91; PULSE 68; TEMP 37.2; O2SAT 96
[2016-12-31 03:51] VITALS: BP 138/82; PULSE 61; TEMP 36.9; O2SAT 96
[2016-12-31 05:56] LABS: BASO % 0.5 %; BASO ABS # 0.03 K/uL (0-0.2); COMPLETE YES; EOS % 2.7 %; HEMATOCRIT 42.6 % (42-52); IG% 0.4 %; LYMPH % 27.8 %; LYMPH ABS # 1.54 K/uL (1.2-3.4); MEAN CELL VOLUME 95.7 fL (80-100); MEAN CORPUSCULAR HEMOGLOBIN 32.1 pg (25-34); MEAN CORPUSCULAR HGB CONC 33.6 g/dl (32-36); MEAN PLATELET VOLUME 9.4 fL (7.4-10.4); MONO % 10.3 %; NEUT % 58.3 %; PLATELET COUNT 208 K/uL (130-400); RED BLOOD COUNT 4.45 M/uL (4.7-6.1); WHITE BLOOD COUNT 5.54 K/uL (4.8-10.8)
[2016-12-31 06:23] LABS: CALCIUM 8.9 mg/dl (8.5-10.1); CREATININE 0.97 mg/dl (0.60-1.40); POTASSIUM 3.7 mmol/L (3.5-5.1)
[2016-12-31 06:26] LABS: CHOLESTEROL/HDL RATIO 2.7
[2016-12-31 07:26] VITALS: BP 165/81; PULSE 57; TEMP 36.4; O2SAT 98
[2016-12-31 08:57] LABS: ESTIMATED AVERAGE GLUCOSE 114 mg/dl; HA1C FLAG Normal (Normal)
--- NOTE | 2016-12-31 09:42 | ECHOCARDIOGRAM REPORT ---
*NOTICE TO RECEIVING REPUBLICAN AGENCY This information is strictly Confidential and protected under [place] law. [place] law prohibits you from making any further disclosure of this information unless further disclosure is expressly permitted by the written consent of the person to whom it pertains or is authorized by law. A general authorization for the release of medical or other information is not sufficient for this purpose. Hospital accepts no responsibility if the information is made available to any other person, INCLUDING THE PATIENT. Interpretation Summary * Name: TYSON LEVY Study Date: 12/31/2016 06:27 AM BP: 165/81 mmHg * Patient Location: C.2T\S\S233\S\1 HR: 55 * : 1950 (M/d/yyyy) Gender: Male Height: 73 in * Age: 66 yrs Ethnicity: CA Weight: 180 lb * Ordering Physician: Zeina Bright * Referring Physician: Self, Referred * Performed By: Florence Macedo [facility] * * Reason For Study: STROKE * BSA: 2.1 m2 * -- Conclusions -- * Normal LV chamber size with mild concentric LVH, sigmoid appearing septum. * Normal LV systolic function, EF 55-60%. * No segmental left ventricular wall motion abnormalities are noted. * Grade II diastolic dysfunction. * No significant valvular disease. * Intact interatrial septum. Procedure Details * A complete two-dimensional transthoracic echocardiogram was performed (2D, M-mode, Doppler and color flow Doppler). * A saline contrast injection was performed to assess for cardiac shunting. * The injection was performed through an intravenous line in the right arm. * The attending nurse who injected the saline contrast was СВЕТЛАНА MURDOCK, RN. * A total of 20 cc of agitated saline was given. Left Ventricle * The left ventricle is normal in size. * There is mild concentric left ventricular hypertrophy. * The basal septum is thickened and angulated consistent with sigmoid septum. * Ejection Fraction = 55-60%. * Left ventricular systolic function is normal. * No segmental left ventricular wall motion abnormalities are noted. * The left ventricular wall motion is normal. Right Ventricle * The right ventricular cavity size is normal (basal dimension <4.2 cm in right ventricular apical 4-chamber view). * The right ventricular systolic function is normal as assessed by tricuspid annular plane systolic excursion (TAPSE) (normal >1.5 cm). Atria * The left atrial size is normal. * Right atrial size is normal. * The interatrial septum is intact with no evidence for an atrial septal defect. Mitral Valve * The mitral valve is normal in structure and function. Tricuspid Valve * The tricuspid valve is normal in structure and function. Aortic Valve * The aortic valve is normal in structure and function. Pulmonic Valve * The pulmonary valve is not well seen, but the Doppler examination is normal without significant regurgitation or stenosis. Great Vessels * The aortic root is normal size. Pericardium/Pleural * There is no pericardial effusion. Left Ventricular Diastolic Function * Diastolic dysfunction, Grade II (pseudonormalization pattern). MMode 2D Measurements and Calculations IVSd 1.5 cm IVSs 1.6 cm LVIDd 4.5 cm LVIDs 3.4 cm LVPWd 1.3 cm LVPWs 1.6 cm IVS/LVPW 1.2 FS 24.3 % EDV(Teich) 90.6 ml ESV(Teich) 46.7 ml EF(Teich) 48.4 % EDV(cubed) 88.8 ml ESV(cubed) 38.6 ml EF(cubed) 56.6 % % IVS thick 5.3 % % LVPW thick 22.4 % LV mass(C)d 240.3 grams LV mass(C)dI 116.8 grams/m\S\2 LV mass(C)s 197.5 grams LV mass(C)sI 96.0 grams/m\S\2 SV(Teich) 43.9 ml SI(Teich) 21.3 ml/m\S\2 SV(cubed) 50.2 ml SI(cubed) 24.4 ml/m\S\2 Ao root diam 3.5 cm Ao root area 9.6 cm\S\2 ACS 1.9 cm LA dimension 3.1 cm LA/Ao 0.89 LVOT diam 2.0 cm LVOT area 3.1 cm\S\2 LVAd ap4 39.6 cm\S\2 LVLd ap4 9.5 cm EDV(MOD-sp4) 137.5 ml EDV(sp4-el) 140.2 ml LVAs ap4 27.8 cm\S\2 LVLs ap4 8.7 cm ESV(MOD-sp4) 75.0 ml ESV(sp4-el) 75.7 ml EF(MOD-sp4) 45.5 % EF(sp4-el) 46.0 % LVAd ap2 36.0 cm\S\2 LVLd ap2 8.9 cm EDV(MOD-sp2) 120.6 ml EDV(sp2-el) 124.1 ml LVAs ap2 21.5 cm\S\2 LVLs ap2 7.0 cm ESV(MOD-sp2) 56.9 ml ESV(sp2-el) 56.2 ml EF(MOD-sp2) 52.8 % EF(sp2-el) 54.7 % LVLd %diff -6.88 % EDV(MOD-bp) 134.1 ml LVLs %diff -25.05 % ESV(MOD-bp) 71.9 ml EF(MOD-bp) 46.4 % SV(MOD-sp4) 62.5 ml SI(MOD-sp4) 30.4 ml/m\S\2 SV(MOD-sp2) 63.7 ml SI(MOD-sp2) 30.9 ml/m\S\2 SV(MOD-bp) 62.2 ml SI(MOD-bp) 30.2 ml/m\S\2 SV(sp4-el) 64.5 ml SI(sp4-el) 31.4 ml/m\S\2 SV(sp2-el) 67.9 ml SI(sp2-el) 33.0 ml/m\S\2 Doppler Measurements and Calculations MV E max melita 73.7 cm/sec MV A max melita 45.6 cm/sec MV E/A 1.6 MV P1/2t max melita 82.4 cm/sec MV P1/2t 89.7 msec MVA(P1/2t) 2.5 cm\S\2 MV dec slope 269.1 cm/sec\S\2 MV dec time 0.21 sec Ao V2 max 125.3 cm/sec Ao max PG 6.3 mmHg Ao max PG (full) 1.8 mmHg MILLIE(V,A) 2.6 cm\S\2 MILLIE(V,D) 2.6 cm\S\2 LV V1 max PG 4.5 mmHg LV V1 max 106.2 cm/sec
--- NOTE | 2016-12-31 11:09 | DIAGNOSTIC IMAGING REPORT ---
HEAD WITHOUT CONTRAST (CT) CLINICAL HISTORY: 66 years-old Male presenting with need to check for post cva bleed day number 4. TECHNIQUE: Multidetector CT imaging of the head was performed without the use of intravenous contrast. IV contrast: None. A dose lowering technique was used consistent with the principles of ALARA (as low as reasonably achievable). COMPARISON: 12/30/2016. CT DOSE (mGy.cm): The estimated cumulative dose is 638.56 mGycm. FINDINGS: Cosmetician topogram: Unremarkable. Ventricles and sulci normal in size. Again demonstrated is the wedge-shaped hypodense region in the inferior paramedian right cerebellum. No hemorrhage or associated increased mass effect. Persistent crowding of the foramen magnum, unchanged. Periventricular white matter hypoattenuation unchanged from prior, likely chronic small vessel ischemic change. No mass effect or midline shift. No extra-axial fluid collection. Paranasal sinuses and mastoid air cells clear. Calvarium intact. IMPRESSION: 1. Wedge-shaped hypodense region in the inferior paramedian right cerebellum could be compatible with subacute or chronic infarct. No increased mass effect or hemorrhagic transformation. 2. Chronic small vessel ischemic change. Electronically signed by: Davy Boston M.D. 12/31/2016 11:08 AM Dictated Date/Time: 12/31/2016 11:04 AM
[2016-12-31 11:28] VITALS: BP 165/85; PULSE 64; TEMP 36.8; O2SAT 97
[2016-12-31 15:20] VITALS: BP 149/94; PULSE 65; TEMP 36.6; O2SAT 98
--- NOTE | 2016-12-31 15:28 | PROGRESS NOTE ---
DATE: 12/31/2016 DATE: 12/31/2016 Tony looks about the same today. He admits now that his gait not as steady as it had been earlier right after the event in question, but I suspect he was covering a bit. The right hand clumsiness is minimally present and his right facial subjective numbness is much less. He still has no extraocular dysmotility, speech is clear. There are minimal cerebellar signs on finger to nose testing in the right hand and more importantly, the CT scan today that shows no evidence for hemorrhagic transformation of the relatively large right cerebellar infarct. There was some mass effect, but minimal and it is certainly no worse than the initial CT and clinically he is stable. Blood pressures have been running a little on the high side, certainly not as high as it was when he was admitted and plans are to get him to [facility] for rehabilitation for 3-4 days. Cardiac monitoring has shown no evidence for atrial fibrillation and his echocardiogram shows no evidence for intracardiac source of emboli and there is no evidence on bubble study for a shunt. At this point then he should be on dual antiplatelet therapy with 81 mg of aspirin and 75 mg of Plavix. I would simply start this on a daily basis and not do a plavix "load". He is going to need an outpatient CardioNet/zio patch but this is something that can be arranged after he gets discharged from [facility] and follows up with his primary care physician and neurology. He is not going to need any further neurologic evaluation beyond the search for paroxysmal atrial fibrillation and if this is present obviously then he is going to have to be considered a candidate for novel anticoagulant or possibly Coumadin. I will check back on him tomorrow if he is still here. I went over the plans with he and his . I discussed it with his current nurse in the unit. I did not discuss it yet with Dr. Sweet, but I think the information is going to be relayed to her and the decision about statin therapy and antihypertensives are going to rest with her, but from algorithm point of view he will probably be placed on a statin just because he had the stroke. SERGEY
[2016-12-31] MEDS ORDERED: NURSING VERBAL MED ORDER ONE (15:30)
[2016-12-31] MEDS ORDERED: ASPEC81 PO (15:49)
[2016-12-31] MEDS ORDERED: PLV75 PO (15:49)
[2016-12-31] MEDS ORDERED: LPT40 PO (15:49)
--- NOTE | 2016-12-31 15:55 | Discharge Instructions ---
Discharge Instructions Date of Service Dec 31, 2016. Admission Reason for Admission: CVA Discharge Discharge Diagnosis / Problem: ACUTE RT SIDED CEREBELLAR CVA Discharge Goals Goal(s): Decrease discomfort, Diagnostic testing, Therapeutic intervention Activity Recommendations Activity Level: Up Ad María Therapies: Physical Therapy, Occupational Therapy Lifting Limitations: none Exercise/Sports Limitations: none Shower/Bathe: no limitations . Additional Information Patient informed of condition: No Advance Directives: No DNR: No Level of Care: Acute Rehab Communicable Disease: No Prognosis: Stable Carr Catheter: No Instructions / Follow-Up Instructions / Follow-Up PLEASE HAVE HOSPITAL FOLLOW UP WITH DR VASQUEZ AFTER DISCHARGE FROM REHAB WILL NEED CARDIO NET /ZIO PATCH OUT OUT PATIENT FOR ASSESSMENT OF ARRHYTHMIA CONTINUE TO TAKE ASPIRIN , PLAVIX FOR AT LEAST 3 MONTHS THEN CAN CHANGE TO ASPIRIN 81 MG DAILY ONLY -PLEASE HAVE FAMILY PHYSICIAN / NEUROLOGY FOLLOW UP PRIOR TO ADJUSTING MEDICATIONS NEED FASTING LIPID PROFILE CHECKED IN 6 MONTH THEN YEARLY GOAL LDL IS LESS THAN 70 Current Hospital Diet Patient's current hospital diet: AHA Diet (Heart Healthy) Discharge Diet Recommended Diet: AHA Diet (Heart Healthy) Pending Studies Studies pending at discharge: no Laboratory Results Hemoglobin A1c Test 12/30/16 09:50 Range/Units Estimated Average Glucose 114 mg/dl Hemoglobin A1c 5.6 4.5-5.6 % Lipid Panel Test 12/31/16 05:34 Range/Units Triglycerides Level 102 0-150 mg/dl Cholesterol Level 184 0-200 mg/dl HDL Cholesterol 67 mg/dl Cholesterol/HDL Ratio 2.7 LDL Cholesterol, Calculated 97 mg/dl Medical Emergencies . Who to Call and When: Medical Emergencies: If at any time you feel your situation is an emergency, please call 911 immediately. . Non-Emergent Contact Non-Emergency issues call your: Primary Care Provider . . "Provider Documentation" section prepared by Reina Sweet. . Core Measure Problem Core Measures: Stroke AMI Core Measures Reason no ASA as I/P: Contraindicated Stroke Core Measures Reason no t-PA for Stroke: Treatment not indicated Reason no antithrom by day 2: Treatment provided - N/A Reason no antithrom at D/C: Treatment provided - N/A Reason no statin at D/C: Treatment provided - N/A Reason no anticoag w/a fib: Treatment not indicated
[2016-12-31] MEDS ORDERED: CLOPIDOGREL BISULFATE 75 MG TAB PO ONE (16:00)
[2016-12-31] MEDS ORDERED: ASPIRIN 81 MG ECTAB PO ONE (16:00)
[2016-12-31 16:14] VITALS: BP 149/94; PULSE 65; TEMP 36.6; O2SAT 98
--- NOTE | 2016-12-31 16:39 | Progress Note ---
Internal Med Progress Note Date of Service: Dec 31, 2016. Provider Documentation: SUBJECTIVE: weakness on rt arm and hand has improved markedly still has some gait disturbance of rt foot no headache or visual symptoms speech is clear CT head this am shows no hge conversion started on Aspirin , Plavix already evaluated by Neurology stable to be transferred to Rehab at [facility] OBJECTIVE: Vital Signs-as noted below Exam: General-no sign of distress Eyes-sclera non icteric , PERRLA/EOMI ENT-tongue midline Neck-no J VD Lungs-CTA, no wheeze or rales Heart-regular S1/S2 Abdomen-soft, non tender Extremities-no rash or deformity Neuro-mild weakness on rt arm , in co-ordination of finger to nose on rt side Lab data as noted below. ASSESSMENT & PLAN: ACUTE RIGHT CEREBELLAR INFARCT Presented with vertigo, right hand coordination difficulty, right facial and right leg numbness, and difficulty ambulating CT head- no hemorrhage, mass effect or evidence acute ischemia, + R cerebellar encephalomalacia typical for remote infarct- correlate with history; indeterminant ovoid 9 mm hyperdense structure along the course of R MCA concerning for aneurysm, CTA neck- no signficiant stenosis, occlusion, or dissection within carotid or vertebral arteries, +mild plaque formation CTA brain- the aneurysm questioned on CT corresponds to tortuosity of the right MCA; There is low-attenuation seen throughout the right cerebellar hemisphere with the suggestion of mild edema, likely subacute to chronic ischemia, mass lesion much less likely, correlate with MRI MRI brain combo- large subacute geographic infarct right inferior cerebellum, considerable chronic small vessel change throughout both cerebral hemispheres, no abnormal postcontrast enhancement ECHO shows ; no evidence of cardiac thrombus , no PFO started on atorvastatin [address] head this AM : shows : 1. Wedge-shaped hypodense region in the inferior paramedian right cerebellum could be compatible with subacute or chronic infarct. No increased mass effect or hemorrhagic transformation. 2. Chronic small vessel ischemic change. pt started on Aspirin and Plavix will be continued on statin appreciate Neurology eval stable to be transferred to [facility] for acute rehab will need dual antiplatelet tx for at least 3 months then re eval with neurology for medication adjustment -single antiplatelet Aspirin 81 mg life long out pt Cardionet ,ZIo net after discharge form rehab HYPERTENSION BP stable no antihypertensive medication indicated allow permissive HTN in setting of acute CVA DVT PROPHYLAXIS SCD's ambulate FULL CODE DISPOSITION transfer pt to [facility] Vital Signs: Date Time Temp Pulse Resp B/P (MAP) Pulse Ox O2 Delivery O2 Flow Rate FiO2 12/31/16 16:14 36.6 65 19 98 Room Air 12/31/16 15:20 36.6 65 19 149/94 (112) 98 Room Air 12/31/16 12:00 Room Air 12/31/16 11:28 36.8 64 20 165/85 (111) 97 Room Air 12/31/16 08:00 Room Air 12/31/16 07:26 36.4 57 20 165/81 (109) 98 Room Air 12/31/16 04:00 Room Air 12/31/16 03:51 36.9 61 18 138/82 (100) 96 Room Air 12/31/16 00:00 Room Air 12/30/16 23:40 37.2 68 18 164/91 (115) 96 Room Air 12/30/16 20:00 36.9 60 18 154/82 (106) 98 Room Air 12/30/16 20:00 98 Room Air Lab Results: Results Past 24 Hours Test 12/31/16 05:34 Range/Units White Blood Count 5.54 4.8-10.8 K/uL Red Blood Count 4.45 4.7-6.1 M/uL Hemoglobin 14.3 14.0-18.0 g/dL Hematocrit 42.6 42-52 % Mean Corpuscular Volume 95.7 80-100 fL Mean Corpuscular Hemoglobin 32.1 25-34 pg Mean Corpuscular Hemoglobin Concent 33.6 32-36 g/dl Platelet Count 208 130-400 K/uL Mean Platelet Volume 9.4 7.4-10.4 fL Neutrophils (%) (Auto) 58.3 % Lymphocytes (%) (Auto) 27.8 % Monocytes (%) (Auto) 10.3 % Eosinophils (%) (Auto) 2.7 % Basophils (%) (Auto) 0.5 % Neutrophils # (Auto) 3.23 1.4-6.5 K/uL Lymphocytes # (Auto) 1.54 1.2-3.4 K/uL Monocytes # (Auto) 0.57 0.11-0.59 K/uL Eosinophils # (Auto) 0.15 0-0.5 K/uL Basophils # (Auto) 0.03 0-0.2 K/uL RDW Standard Deviation 43.6 36.4-46.3 fL RDW Coefficient of Variation 12.5 11.5-14.5 % Immature Granulocyte % (Auto) 0.4 % Immature Granulocyte # (Auto) 0.02 0.00-0.02 K/uL Sodium Level 141 136-145 mmol/L Potassium Level 3.7 3.5-5.1 mmol/L Chloride Level 106 98-107 mmol/L Carbon Dioxide Level 26 21-32 mmol/L Anion Gap 9.0 3-11 mmol/L Blood Urea Nitrogen 19 7-18 mg/dl Creatinine 0.97 0.60-1.40 mg/dl Est Creatinine Clear Calc Drug Dose 85.8 ml/min Estimated GFR () 94.6 Estimated GFR (Non- 81.6 BUN/Creatinine Ratio 20.0 10-20 Random Glucose 98 70-99 mg/dl Calcium Level 8.9 8.5-10.1 mg/dl Triglycerides Level 102 0-150 mg/dl Cholesterol Level 184 0-200 mg/dl HDL Cholesterol 67 mg/dl LDL Cholesterol, Calculated 97 mg/dl VLDL Cholesterol, Calculated 20 mg/dl Cholesterol/HDL Ratio 2.7
--- NOTE | 2016-12-31 16:44 | Discharge Summary ---
Discharge Summary Date of Service Dec 31, 2016. Discharge Summary Admission Date: Dec 30, 2016 at 14:21 Discharge Date: Dec 31, 2016 Discharge Disposition: Rehab ([facility] ) Principal Diagnosis: ACUTE RT SIDED CEREBELLAR CVA Procedures: CT HEAD IMPRESSION: 1. There is no hemorrhage, mass effect, or evidence of acute territorial ischemia by CT criteria. 2. Right cerebellar encephalomalacia is typical in appearance for a remote infarct. Correlation with the patient's medical history will be required. 3. There is an indeterminant ovoid 9 mm hyperdense structure along the course of the right middle cerebral artery. This is concerning for aneurysm. Follow-up with a CT angiogram of the brain is recommended for further assessment. MRI OF BRAIN : 1. Large subacute geographic infarct right inferior cerebellum. 2. Considerable chronic small vessel change throughout both cerebral hemispheres. 3. No abnormal postcontrast enhancement. CT ANGIOGRAM OF HEAD : 1. Unremarkable CT angiogram of the brain. The aneurysm questioned on the unenhanced examination corresponds to tortuosity of the right middle cerebral artery. 2. There is low-attenuation seen throughout the right cerebellar hemisphere with the suggestion of mild edema. This is likely related to subacute to chronic ischemia. A mass lesion is considered much less likely. Correlation with a contrast-enhanced MRI is recommended for further assessment. 3. No acute supratentorial abnormality is identified. ECHO : * Normal LV chamber size with mild concentric LVH, sigmoid appearing septum. * Normal LV systolic function, EF 55-60%. * No segmental left ventricular wall motion abnormalities are noted. * Grade II diastolic dysfunction. * No significant valvular disease. * Intact interatrial septum. Consultations: NEUROLOGY DR PEREZ Medication Reconciliation New Medications: Aspirin (Aspirin EC Low Dose) 81 Mg Ectab 81 MG PO DAILY for 30 Days, #30 TABS take with full stomach Atorvastatin (Atorvastatin Calcium) 40 Mg Tab 80 MG PO QPM for 30 Days, #30 TAB 3 Refills Clopidogrel Bisulfate (Clopidogrel) 75 Mg Tab 75 MG PO DAILY for 30 Days, #30 TAB 2 Refills take with full stomach Admission Information HPI (per Admitting provider): This is a 66 y/o male with recently noted HTN who presents to the ED with stroke like symptoms. Patient states 3 days ago he developed vertigo "like I was spinning" and vomiting, then slept for the rest of the day. The next day he felt better although was "wobbly", then yesterday mowed the lawn and ate normally. He went to bed at 10 pm then awoke at 3 am noting his right hand coordination was off, right facial numbness and right foot numbness. Also had a mild DAVIS overnight. He was brought to the ER by his and had difficulty ambulating into the ER. Currently still having right facial numbness and R hand coordination difficulty. Denies vision change, speech or swallowing difficulty, facial droop, focal weakness, syncope, palpitations, chest pain, SOB, BASURTO, bowel or bladder changes, fever, URI symptoms, tinnitus. Pt reports rash on arms after "either bug bites or poison tiffany" while outside last week which is improving. Patient states his BP was elevated at the dentist recently. Pt reports seeing Dr. Vasquez last month, BP was elevated in the office, pt preferred not to go on medication at that time. Home BP readings are 130s-140s systolic at home however increase to 150's if he is upset. Patient denies any history of TIA, CVA, HL, DM. Physical Exam (per Admitting): General Appearance: WD/WN, no apparent distress, + pertinent finding ( at bedside) Head: normocephalic, atraumatic Eyes: normal inspection, PERRL, EOMI, sclerae normal ENT: hearing grossly normal, pharynx normal Neck: supple, no carotid bruits, trachea midline Respiratory/Chest: lungs clear, normal breath sounds, no respiratory distress, no accessory muscle use Cardiovascular: regular rate, rhythm, no murmur Abdomen/GI: normal bowel sounds, non tender, soft Extremities/Musculoskelatal: no calf tenderness, no pedal edema Neurologic/Psych: paddock judge II-XII nml as tested, no motor/sensory deficits, alert , normal mood/affect, oriented x 3, + pertinent finding (finger to nose testing abnormal on the right side. gait not assessed.) Skin: normal color, warm/dry Hospital Course ACUTE RIGHT CEREBELLAR INFARCT Presented with vertigo, right hand coordination difficulty, right facial and right leg numbness, and difficulty ambulating CT head- no hemorrhage, mass effect or evidence acute ischemia, + R cerebellar encephalomalacia typical for remote infarct- correlate with history; indeterminant ovoid 9 mm hyperdense structure along the course of R MCA concerning for aneurysm, CTA neck- no signficiant stenosis, occlusion, or dissection within carotid or vertebral arteries, +mild plaque formation CTA brain- the aneurysm questioned on CT corresponds to tortuosity of the right MCA; There is low-attenuation seen throughout the right cerebellar hemisphere with the suggestion of mild edema, likely subacute to chronic ischemia, mass lesion much less likely, correlate with MRI MRI brain combo- large subacute geographic infarct right inferior cerebellum, considerable chronic small vessel change throughout both cerebral hemispheres, no abnormal postcontrast enhancement ECHO shows ; no evidence of cardiac thrombus , no PFO started on atorvastatin [address] head this AM : shows : 1. Wedge-shaped hypodense region in the inferior paramedian right cerebellum could be compatible with subacute or chronic infarct. No increased mass effect or hemorrhagic transformation. 2. Chronic small vessel ischemic change. pt started on Aspirin and Plavix will be continued on statin appreciate Neurology eval stable to be transferred to [facility] for acute rehab will need dual antiplatelet tx for at least 3 months then re eval with neurology for medication adjustment -single antiplatelet Aspirin 81 mg life long out pt Cardionet ,ZIo net after discharge form rehab HYPERTENSION BP stable no antihypertensive medication indicated allow permissive HTN in setting of acute CVA DVT PROPHYLAXIS SCD's ambulate FULL CODE DISPOSITION transfer pt to [facility] Total time spent on discharge = 40 MINS This includes examination of the patient, discharge planning, medication reconciliation, and communication with other providers. Discharge Instructions Discharge Instructions Date of Service Dec 31, 2016. Admission Reason for Admission: CVA Discharge Discharge Diagnosis / Problem: Risk Factors for Stroke: Discharge Goals Goal(s): Decrease discomfort, Diagnostic testing, Therapeutic intervention Activity Recommendations Activity Level: Up Ad María Therapies: Physical Therapy, Occupational Therapy Lifting Limitations: none Exercise/Sports Limitations: none Shower/Bathe: no limitations . Additional Information Patient informed of condition: No Advance Directives: No DNR: No Level of Care: Acute Rehab Communicable Disease: No Prognosis: Stable Carr Catheter: No Instructions / Follow-Up Instructions / Follow-Up PLEASE HAVE HOSPITAL FOLLOW UP WITH DR VASQUEZ AFTER DISCHARGE FROM REHAB WILL NEED CARDIO NET /ZIO PATCH OUT OUT PATIENT FOR ASSESSMENT OF ARRHYTHMIA CONTINUE TO TAKE ASPIRIN , PLAVIX FOR AT LEAST 3 MONTHS THEN CAN CHANGE TO ASPIRIN 81 MG DAILY ONLY -PLEASE HAVE FAMILY PHYSICIAN / NEUROLOGY FOLLOW UP PRIOR TO ADJUSTING MEDICATIONS NEED FASTING LIPID PROFILE CHECKED IN 6 MONTH THEN YEARLY GOAL LDL IS LESS THAN 70 Current Hospital Diet Patient's current hospital diet: AHA Diet (Heart Healthy) Discharge Diet Recommended Diet: AHA Diet (Heart Healthy) Pending Studies Studies pending at discharge: no Laboratory Results Hemoglobin A1c Test 12/30/16 09:50 Range/Units Estimated Average Glucose 114 mg/dl Hemoglobin A1c 5.6 4.5-5.6 % Lipid Panel Test 12/31/16 05:34 Range/Units Triglycerides Level 102 0-150 mg/dl Cholesterol Level 184 0-200 mg/dl HDL Cholesterol 67 mg/dl Cholesterol/HDL Ratio 2.7 LDL Cholesterol, Calculated 97 mg/dl Medical Emergencies . Who to Call and When: Medical Emergencies: If at any time you feel your situation is an emergency, please call 911 immediately. . Non-Emergent Contact Non-Emergency issues call your: Primary Care Provider . . "Provider Documentation" section prepared by Reina Sweet. . Core Measure Problem Core Measures: Stroke AMI Core Measures Reason no ASA as I/P: Contraindicated Stroke Core Measures Reason no t-PA for Stroke: Treatment not indicated Reason no antithrom by day 2: Treatment provided - N/A Reason no antithrom at D/C: Treatment provided - N/A Reason no statin at D/C: Treatment provided - N/A Reason no anticoag w/a fib: Treatment not indicated Additional Copies To David Vasquez III, M.D. David Perez M.D. (MEDICINE)
== END 2016-12-31 17:33 | DRG 65 ==
LOC: C.EDB 09:39 → C.2T 14:21 → ENRESERV 14:34
PROVIDERS: ADMIT Internal Medicine; ATTEND Hospitalist
DX: I63.9 Cerebral infarction, unspecified (principal); G81.91 Hemiplegia, unspecified affecting right dominant side; I10 Essential (primary) hypertension; Z86.010 Personal history of colon polyps; Z87.891 Personal history of nicotine dependence; Z83.3 Family history of diabetes mellitus; Z80.9 Family history of malignant neoplasm, unspecified; Z84.1 Family history of disorders of kidney and ureter; Z82.49 Family history of ischemic heart disease and other diseases of the circulatory system